=== PATIENT | male | born 1965 ===

== ENCOUNTER 2019-08-01 13:25 | Outpatient (CLI) | payer MEDICAID ==
--- NOTE | 2019-08-01 20:30 | Consultation ---
DATE OF CONSULTATION: 08/01/2019 CHIEF COMPLAINT: Stool OB positive. HISTORY OF PRESENT ILLNESS: The patient is a 54-year-old male was referred to us for evaluation of the stool OB being positive in a screening stool test. The patient at this time asymptomatic. PAST MEDICAL HISTORY: 1. Diabetes. 2. GERD. PAST SURGICAL HISTORY: None. MEDICATIONS: Taking medication for diabetes . FAMILY HISTORY: Grandfather had cancer. He does not know what kind of cancer. SOCIAL HISTORY: The patient denies any tobacco or alcohol abuse. ALLERGIES: No known drug allergies. REVIEW OF SYSTEMS: Positive for on and off GERD. PHYSICAL EXAMINATION: HEENT: Normocephalic and atraumatic. Sclerae anicteric. NECK: Supple. No adenopathy. CARDIOVASCULAR: Regular rate and rhythm. Plus S1 and S2. LUNGS: Clear to auscultation bilaterally. ABDOMEN: Positive bowel sounds. Soft and nontender. No rebound. No guarding. No peritoneal sign. EXTREMITIES: No cyanosis, clubbing, or edema. ASSESSMENT AND PLAN: This is a 54-year-old male with stool OB positive. No prior history of endoscopy and colonoscopy. The patient has also history of chronic GERD so the patient would need endoscopy and colonoscopy. The patient was given instruction for both, we are pending authorization . Froy Lindsay M.D. DR: Marcin JOB#: [id number] CC:
== END 2019-08-01 15:52 | disposition home or self-care (01) ==
LOC: PAN 13:25
DX: K21.9 Gastro-esophageal reflux disease without esophagitis (principal); E11.9 Type 2 diabetes mellitus without complications